=== PATIENT | female | born 1955 | race Caucasian/White ===

== ENCOUNTER 2019-06-21 06:16 | Inpatient (IN) ==
--- NOTE | 2019-05-21 15:40 | PAT Medication Instructions ---
Medication Instructions Date of Service May 21, 2019 Home Medications albuterol sulfate 1 puff INHALATION Q6H PRN amlodipine 5 mg PO QAM atorvastatin 40 mg PO PM carvedilol 6.25 mg PO BID lisinopril-hydrochlorothiazide 1 tab PO QAM DO NOT take the morning of surgery lisinopril-hydrochlorothiazide 1 tab PO QAM Take morning of surgery With a small sip of water, OTHERWISE NOTHING TO EAT OR DRINK AFTER MIDNIGHT: albuterol sulfate 1 puff INHALATION Q6H PRN (use if needed; please bring with you to hospital day of surgery if possible) amlodipine 5 mg PO QAM carvedilol 6.25 mg PO BID Take evening before surgery albuterol sulfate 1 puff INHALATION Q6H PRN (if needed) atorvastatin 40 mg PO PM carvedilol 6.25 mg PO BID Other Notes If you have any questions please call us at [phone] or [phone] or [phone] or [phone]
--- NOTE | 2019-05-22 10:54 | Anesthesiology Consultation ---
Date of Service May 22, 2019 Assessment & Plan (1) Encounter for pre-operative examination: - No previous anesthesia records re: intubation. Chart Review Chart Review: Acceptable Risk for Surgery and Patient seen in Pre Admission Testing Consults Requested none Teaching & Discussion Pre-Anesthesia Teaching/Discussion Notes: Instructed NPO after midnight before surgery, except medications with 15 cc of water. Medication instructions provided according to the PAT guidelines. History Surgery Operation Date: 06/21/19 07:00 Proposed Procedures p Left Anterior Total Hip Arthroplasty - Enmanuel Walsh DO Height/Weight Height: 5 ft 6.5 in Weight: 98.5 kg Allergies Allergy/AdvReac Type Severity Reaction Status Date / Time No Known Allergies Allergy Unverified 05/17/19 10:59 Medications Home Medications Medication Instructions Recorded Confirmed Last Taken albuterol sulfate 1 puff INHALATION Q6H PRN 05/17/19 05/17/19 Unknown amlodipine 5 mg PO QAM 05/17/19 05/17/19 Unknown atorvastatin 40 mg PO PM 05/17/19 05/17/19 Unknown carvedilol 6.25 mg PO BID 05/17/19 05/17/19 Unknown lisinopril-hydrochlorothiazide 1 tab PO QAM 05/17/19 05/17/19 Unknown Past Medical History Medical History Asthma STABLE; RARELY USES PRN INH History of breast cancer S/P LEFT MASTECTOMY + RADIATION - 1994 History of ovarian cancer S/P NENITA BSO + CHEMO - 2015 Hyperlipidemia Hypertension Limb alert care status LUE Exercise / Class Metabolic Activity II 4-5 Yardwork/Stairs/Walk up hill (Able to climb FOS. Denies CP or SOB. ) Past Surgical History Surgical History History of breast biopsy History of colonoscopy History of left mastectomy History of right hip replacement History of total abdominal hysterectomy and bilateral salpingo-oophorectomy History of vascular access device REMOVED Status post transverse rectus abdominis muscle (TRAM) flap breast reconstruction Past Anesthesia History No Hx of Anesthesia Complications and No Family Hx of Anesthesia Complications History of PONV No Hx of PONV and No Hx of Motion Sickness Social History Smoking Status: Current every day smoker tobacco type: cigarettes Smoking cigarettes per day: 3-4 PER DAY (Advised) Do You Dip or Chew Tobacco: No Hx Alcohol Use: Yes alcohol intake frequency: holidays/special occasions only Hx Substance Use: No substance use type: does not use Review of Systems Patient denies chest pain, shortness of breath, dyspnea on exertion, reflux, cough, wheezing, palpitations. +Joint Pain (Hip) Physical Exam Vital Signs BP: 136/81 P: 64 R: 14 T: 98.3 SPO2: 98% on RA Constitutional + obese ENMT Mouth: + poor dentition Thyromental Distance: < 3.5 Finger Breadths (2.5) Mallampati Class: II Neck normal visual inspection, trachea midline and + thick neck; neck extension not limited Respiratory normal respiratory effort Auscultation: lungs clear to auscultation bilaterally Cardiovascular Rate/Rhythm: regular rate and regular rhythm Heart Sounds: no murmur Vessels: no carotid bruit Neurologic moves all extremities Psychiatric Orientation: alert and oriented x 3 Testing Laboratory Results PT 10.4 Seconds (9.0-12.0) 05/22/19 11:07 INR 1.0 (0.9-1.1) 05/22/19 11:07 APTT 26.7 Seconds (21.0-31.0) 05/22/19 11:07 Urine Color Yellow 05/22/19 Unknown Urine Appearance Clear (Clear) 05/22/19 Unknown Urine pH 5.5 (4.5-7.5) 05/22/19 Unknown Ur Specific [place] 1.018 (1.000-1.030) 05/22/19 Unknown Urine Protein 2+ (Negative) H 05/22/19 Unknown Urine Glucose (UA) Negative (Negative) 05/22/19 Unknown Urine Ketones Negative (Negative) 05/22/19 Unknown Urine Nitrite Positive (Negative) A 05/22/19 Unknown Ur Leukocyte Esterase 2+ (Negative) H 05/22/19 Unknown Urine WBC (Auto) >30 /hpf (0-5) H 05/22/19 Unknown Urine RBC (Auto) 0-4 /hpf (0-4) 05/22/19 Unknown U Hyaline Cast (Auto) 1-5 /lpf (0-5) 05/22/19 Unknown U Epithel Cells (Auto) 10-20 /lpf (0-5) H 05/22/19 Unknown Urine Bacteria (Auto) 4+ (Negative) H 05/22/19 Unknown Blood Type O Positive 05/22/19 11:07 Antibody Screen NEGATIVE 05/22/19 11:07 Surgeon's office was notified of probable UTI. [facility] 05/10/19 WBC: 6.62 H/H: 12.1/37.2 PLATELETS: 228 SODIUM: 143 POTASSIUM: 5.2 H CHLORIDE: 107 CO2: 26 BUN: 24 H CREATININE: 1.6 H GLUCOSE: 117 Electrocardiogram Date: 05/22/19 Findings: + NSR @ (66) and + no change from (06/09/15) Chest X-Ray Date: 05/22/19 Findings: + NAD FINDINGS: No pneumothorax. No pleural effusions. Left breast deformity consist ent with postoperative changes. This is unchanged. There are surgical clips within the left axilla. The lungs are clear. The heart is top normal in size. This remains unchanged. IMPRESSION: No significant change compared to the prior study. No acute process.
--- NOTE | 2019-05-22 12:04 | XRay Report ---
XR chest Pre-admission PA/Lat HISTORY: Preop. COMPARISON: Chest 06/01/2015. FINDINGS: No pneumothorax. No pleural effusions. Left breast deformity consistent with postoperative changes. This is unchanged. There are surgical clips within the left axilla. The lungs are clear. The heart is top normal in size. This remains unchanged. IMPRESSION: No significant change compared to the prior study. No acute process. Electronically signed by: Sonu Major M.D. 05/22/2019 12:03 PM
[2019-05-22 12:14] LABS: Appearance Urine Clear (Clear); Bacteria Urine Automated 4+ (Negative); Bilirubin Urine Negative (Negative); Blood Urine Negative (Negative); Color Urine Yellow; Glucose Urine UA Negative (Negative); Ketones Urine Negative (Negative); Leukocyte Esterase Urine 2+ (Negative); Nitrite Urine Positive (Negative); Protein Urine 2+ (Negative); RBC Urine Automated 0-4 /hpf (0-4); Specific Gravity Urine 1.018 (1.000-1.030); Urobilinogen Urine Negative (Negative); WBC Urine Automated >30 /hpf (0-5); pH Urine 5.5 (4.5-7.5)
[2019-05-22 12:22] LABS: Partial Thromboplastin Time 26.7 Seconds (21.0-31.0); Prothrombin Time 10.4 Seconds (9.0-12.0)
[~2019-06-21 06:16] MED LIST: ACETAMINOPHEN 500 MG TAB PO SCH; CEFAZOLIN 2000MG 2,000 MG/15 ML SYR IV SCH; FAMOTIDINE 20 MG TAB PO SCH; GABAPENTIN 300 MG CAP PO SCH; LR 15ML/HR IV SCH; LR 60ML/HR IV SCH; ROPIVACAINE 0.5% HCL/PF 150 MG, BUPIVACAINE 0.5% MPF 30 ML, EPINEPHrine 30MG/30ML (OR U... INSTIL SCH; TRANEXAMIC ACID 1,000 MG **IV Pre-op IV SCH
[2019-06-21] MEDS ORDERED: TRANEXAMIC ACID 1,000 MG **IV Intra-op IV SCH (06:30)
--- NOTE | 2019-06-21 06:44 | History & Physical Bridge Note ---
Date of Service June 21, 2019 History & Physical Bridge Note I have examined the patient, reviewed the History & Physical and in the interval since the performance of the History & Physical I have noted the following changes of clinical significance: no changes noted
--- NOTE | 2019-06-21 06:47 | History & Physical Report ---
Date of Service June 21, 2019 Assessment & Plan (1) Osteoarthritis of left hip: We will proceed with a left anterior total hip arthroplasty. Postoperatively she will be kept overnight in the hospital for postop medical management. Will use aspirin for DVT prophylaxis. She plans to use [facility] upon discharge. Present on Admission?: Yes History of Present Illness Chief Complaint: Primary osteoarthritis of the left hip Primary Care Provider: Delano Arndt MD Aurea is a pleasant 64-year-old female who I did a right lateral total hip arthroplasty on in 2014. She did well with that. Unfortunately she is now having a lot of left hip pain. X-rays and clinical examination are diagnostic for primary osteoarthritis of the left hip. After failing conservative treatment, she has elected to proceed with a left total hip arthroplasty. Allergies Allergy/AdvReac Type Severity Reaction Status Date / Time No Known Allergies Allergy Unverified 05/17/19 10:59 Home Medications Home Medications Medication Instructions Recorded Confirmed Type albuterol sulfate 1 puff INHALATION Q6H PRN 05/17/19 05/17/19 History amlodipine 5 mg PO QAM 05/17/19 05/17/19 History atorvastatin 40 mg PO PM 05/17/19 05/17/19 History carvedilol 6.25 mg PO BID 05/17/19 05/17/19 History lisinopril-hydrochlorothiazide 1 tab PO QAM 05/17/19 05/17/19 History Past Med/Surg History Medical History Asthma STABLE; RARELY USES PRN INH History of breast cancer S/P LEFT MASTECTOMY + RADIATION - 1994 History of ovarian cancer S/P NENITA BSO + CHEMO - 2015 Hyperlipidemia Hypertension Limb alert care status LUE Surgical History History of breast biopsy History of colonoscopy History of left mastectomy History of right hip replacement History of total abdominal hysterectomy and bilateral salpingo-oophorectomy History of vascular access device REMOVED Status post transverse rectus abdominis muscle (TRAM) flap breast reconstruction Social History Preferred Language: Icelandic Communication Ability: Effective 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: No Beliefs That Will Affect Care: None Current Living Situation: Alone Other Information That Helps Us Care for You: No Feels Safe at Home: Yes Safety Concerns: Feels Safe At This Time Smoking Status: Current every day smoker Tobacco Type: cigarettes ; Cigarettes Per Day: 3-4 PER DAY (Advised) ; Do You Dip or Chew Tobacco: No ; Second Hand Exposure: Yes ; Tobacco Cessation Education Requested by Patient: No Hx Alcohol Use: Yes Hx Substance Use: No Review of Systems All systems reviewed & are unremarkable except as noted in HPI & below Physical Exam Constitutional: WD/WN, vitals as above Eyes: PERRL, conjunctivae normal, anicteric sclerae ENMT: external ear and nose normal, oropharynx normal Neck: trachea midline, no thyromegaly Respiratory: normal respiratory effort Cardiovascular: RRR, no murmur, no edema Gastrointestinal (Abdomen): normal bowel sounds, soft, nontender, no hepatosplenomegaly Musculoskeletal: Physical examination of the left hip reveals decreased range of motion with flexion, internal and external rotation. There is significant groin pain with forced internal rotation of the hip his leg lengths are essentially equal. Psychiatric: A+Ox3, euthymic affect Results & Data Diagnostic Findings Radiographs of the left hip and pelvis demonstrate advanced osteoarthritis with joint space narrowing osteophyte formation and [id number] articulation.
[2019-06-21] MEDS ORDERED: ORTHO JOINT ANESTHETIC ONE (07:01)
[2019-06-21] MEDS ORDERED: MIDAZOLAM HCL 1 MG/ML 2ML VIAL ONE ×2 (07:03→09:17)
[2019-06-21] MEDS ORDERED: fentaNYL citrate 100 MCG/2 ML VIAL ONE (07:03)
[2019-06-21] MEDS ORDERED: ONDANSETRON INJ 2 MG/ML 2 ML VIAL ONE (07:03)
[2019-06-21] MEDS ORDERED: LIDOCAINE HCL 2% 2 ML VIAL/AMP(20MG/ML) INFIL ONE (07:03)
[2019-06-21] MEDS ORDERED: PROPOFOL IV EMULSION 10 MG/ML 20 ML VIAL IV ONE (07:03)
[2019-06-21] MEDS ORDERED: BUPIVACAINE 0.5 % 5 MG/1 ML PF 10ML VIAL ONE (07:31)
[2019-06-21] MEDS ORDERED: LABETALOL HCL IV 5 MG/ML 20ML IV PRN (07:36)
[2019-06-21] MEDS ORDERED: HYDROmorphone INJ 1 MG/ML SYRINGE IV PRN (07:36)
[2019-06-21] MEDS ORDERED: KETOROLAC 30 MG/ML VIAL IV PRN (07:36)
[2019-06-21] MEDS ORDERED: ATROPINE SULFATE 0.1 MG/ML 10ML SYR IV PRN (07:36)
[2019-06-21] MEDS ORDERED: ONDANSETRON INJ 2 MG/ML 2 ML VIAL IV PRN ×2 (07:36→12:06)
[2019-06-21] MEDS ORDERED: PHENYLEPHRINE 100MCG/ML 5ML SYR ONE (09:52)
[2019-06-21] MEDS ORDERED: PHENYLEPHRINE HCL 10 MG/ML VIAL ONE (09:52)
[2019-06-21] MEDS ORDERED: ePHEDrine sulfate 50 MG/ML AMP ONE (09:52)
--- NOTE | 2019-06-21 10:09 | Operative Report ---
Post Operative Report Pre & Post Diagnosis Operation Date: 06/21/19 08:30 Pre-Op Diagnosis: Left Hip Osteoarthritis Post-Op Diagnosis: Left Hip Osteoarthritis Procedure Operation Date: 06/21/19 08:30 Actual Procedures p Left Anterior Total Hip Arthroplasty(Left) - Enmanuel Walsh DO Surgeon Enmanuel Walsh DO Waste Removalist Enmanuel Juarez PAC Estimated Blood Loss 250 Findings Consistent with Post-Op Diagnosis Specimens Left femoral head Complications none Disposition Disposition: Recovery Room Indications Aurea is a pleasant 64-year-old female who presented my office with chronic increasing left hip and groin pain. X-rays and clinical examination were diagnostic for primary osteoarthritis of the left hip. After failing conservative treatment, she elected to proceed with a left anterior total hip arthroplasty. Description of Procedure Implants used Biomet Taperloc total hip arthroplasty system with a size 8 standard offset Taperloc stem, a 48 mm G7 cup with a 25mm screw, an E1 polyethylene liner, a 32 mm ceramic head with a 0 neck. Patient arrived at the hospital for the above procedure. They were seen in the preoperative holding area and the operative extremity was identified and signed. They were given a spinal anesthetic. They were given a preoperative antibiotic and TXA. They were taken back To the operating room and laid on the table in the supine position. The leg was brought out through a Puristst leg positioner. The hip was then prepped and draped in sterile fashion. A timeout was done and the patient in upper extremities properly identified. An anterior approach was used. Dissection was taken down through the fascia and the tensor muscle belly was retracted laterally and the rectus was retracted medially. The circumflex vessels were identified and ligated. The capsule was then incised and tagged for later repair. The femoral neck was then cut and the femoral head was removed. The acetabulum was exposed. Time was spent doing a complete circumferential labral release. Sequential reaming of the acetabulum up to a size 47 reamer was done. Final reamings were done under fluoroscopy to ensure appropriate version. A Biomet 48 mm G7 cup was then impacted into place. A single 25 mm screw was placed. The E1 polyethylene liner was then snapped into place. Surrounding soft tissues were then injected with 100 cc of an orthopedic pain control cocktail. The proximal femur was then exposed. Sequential broaching up to a size 8 broach was done. Off that broach a size 32 head with a 0 neck was trialed. The hip was reduced and fluoroscopic images showed anatomic alignment of the implants in acceptable length. The broach was removed. The final size 8 standard offset Taperloc stem was then impacted into place. A ceramic 32 mm head with a 0 neck was then impacted into place in the hip was reduced. Final fluoroscopic images showed anatomic reduction of the hip. The capsule was then closed with #1 Vicryl suture. A dilute betadyne lavage was then done for 3 minutes. The joint was then irrigated with normal saline solution. The fascia was closed with #1 PDS suture. Skin was closed with 2-0 Vicryl, armin, and a Nicole VAC dressing. The patient was then transferred to a hospital bed and taken to the post anesthesia care unit in stable condition. They tolerated the procedure well. I attest to the content of the Intraoperative Record and any orders documented therein. Any exceptions are noted below.
--- NOTE | 2019-06-21 10:39 | Fluoroscopy Report ---
FL hip LT 1V CLINICAL HISTORY: LEFT ANTERIOR HIP COMPARISON STUDY: Left hip 02/04/2019. FLUOROSCOPY TIME: 24 seconds. FINDINGS: 8 fluoroscopic spot images demonstrate a left total hip arthroplasty. The hardware appears intact. No fracture or dislocation. IMPRESSION: Fluoroscopy provided for left total hip arthroplasty. Electronically signed by: Sonu Major M.D. 06/21/2019 10:38 AM
--- NOTE | 2019-06-21 11:13 | XRay Report ---
XR hip 1V LT w pelvis HISTORY: 64 years-old Female IN PACU - A/P PELVIS and LATERAL HIP left hip total joint arthroplasty COMPARISON: Fluoroscopic images of the left hip of same day TECHNIQUE: AP view of the pelvis with crosstable lateral view of the left hip FINDINGS: Left hip total joint arthroplasty demonstrates satisfactory alignment without acute fracture or retai gwen foreign body. Expected postsurgical soft tissue swelling and deep tissue air about the left hip w ith surgical drainage catheter and lateral skin armin. Right hip total joint arthroplasties also no tori with satisfactory alignment. Heterotopic ossifications superior to the right greater trochanter. The imaged pelvis appears intact. IMPRESSION: Satisfactory alignment of the left hip total joint arthroplasty. The above report was generated using voice recognition software. It may contain grammatical, syntax o r spelling errors. Electronically signed by: Tien Barrera M.D. 06/21/2019 11:12 AM
--- NOTE | 2019-06-21 11:27 | Anesthesiology Progress Note ---
Date of Service June 21, 2019 Anesthesia Post Procedure Vital Signs Vital Signs: Temp Pulse Resp BP Pulse Ox 06/21/19 11:20 36.8 C 58 L 17 134/83 94 06/21/19 11:10 36.7 C 59 L 15 135/86 94 06/21/19 11:00 36.7 C 59 L 14 139/86 96 06/21/19 10:50 36.7 C 56 L 9 L 116/79 98 06/21/19 10:41 36.7 C 61 11 L 117/77 98 06/21/19 06:54 36.5 C 72 16 153/83 H 95 Transfer of Care Handoff Completed per policy Notes Mental Status: alert / awake / arousable Patient Amnestic to Procedure: Yes Nausea / Vomiting: adequately controlled Pain: adequately controlled Airway Patency, RR, SpO2: stable & adequate BP & HR: stable & adequate Hydration State: stable & adequate Neuraxial Anesthesia: was administered and sensory block is resolving Anesthetic Complications: no major complications apparent
[2019-06-21] MEDS ORDERED: BISACODYL 10 MG SUPP PR PRN (12:06)
[2019-06-21] MEDS ORDERED: OXYCODONE HCL IR 5 MG TAB (IMMEDIATE RELEASE) PO PRN (12:06)
[2019-06-21] MEDS ORDERED: ALBUTEROL HFA 8 GM INHALER INH PRN (12:06)
[2019-06-21] MEDS ORDERED: METOCLOPRAMIDE HCL INJ 5 MG/ML 2 ML VIAL IV PRN (12:06)
[2019-06-21] MEDS ORDERED: MAGNESIUM HYDROXIDE SUSP 30 ML UDC PO PRN (12:06)
[2019-06-21] MEDS ORDERED: NALOXONE HCL 0.4 MG/1 ML VIAL/CARP IV PRN (12:06)
[2019-06-21] MEDS ORDERED: HYDROmorphone INJ 0.5 MG/0.5 ML SYR IV PRN (12:06)
[2019-06-21] MEDS: SODIUM CHLORIDE 0.9% 1000ML 1,000 ML IV SCH ×2 (12:48→22:47)
[2019-06-21] MEDS: KETOROLAC 30 MG/ML VIAL IV SCH ×2 (12:48→17:36)
[2019-06-21] MEDS: ACETAMINOPHEN 500 MG TAB PO SCH ×2 (13:45→21:54)
[2019-06-21] MEDS: CEFAZOLIN 2000MG 2,000 MG/15 ML SYR IV SCH (15:52)
[2019-06-21] MEDS: DOCUSATE SODIUM 100 MG CAP PO SCH (20:14)
[2019-06-21] MEDS: CARVEDILOL 6.25 MG TAB PO SCH (20:14)
[2019-06-21] MEDS: ASPIRIN 81 MG ECTAB PO SCH (20:14)
[2019-06-21] MEDS ORDERED: ATORVASTATIN 40 MG TAB PO SCH (21:00)
[2019-06-21] MEDS ORDERED: SENNA 8.6 MG TAB PO SCH (21:00)
[2019-06-22] MEDS: CEFAZOLIN 2000MG 2,000 MG/15 ML SYR IV SCH (00:20)
[2019-06-22] MEDS: KETOROLAC 30 MG/ML VIAL IV SCH ×3 (00:20→12:43)
[2019-06-22] MEDS: ACETAMINOPHEN 500 MG TAB PO SCH (05:26)
--- NOTE | 2019-06-22 07:03 | Orthopedic Progress Note ---
Date of Service June 22, 2019 Assessment & Plan (1) Osteoarthritis of left hip: Overall she is doing very well. She is not having much pain in the left hip. She will be seen by physical therapy this morning for ambulation and range of motion exercises. She can be discharged home later today. She will use [facility]. She is on aspirin for DVT prophylaxis. She will follow-up with orthopedics in 2 weeks. Present on Admission?: Yes Misa Villar was seen and examined at bedside this morning. Overall she is doing very well. She is not having any pain in the left hip. She is been up and ambulating around the room. She has no complaints. Physical Exam Musculoskeletal: On physical examination of the left hip, the Nicole VAC dressing is to suction. Her leg lengths are equal. She is active dorsiflexion and plantarflexion of her left ankle. Sensations intact throughout. Results & Data Vital Signs (Past 12 Hours) Vital Signs Temp Pulse Pulse Resp BP BP Pulse Ox 06/22/19 03:47 36.4 C L 65 16 136/80 97 06/21/19 23:34 36.4 C L 66 16 120/72 96 06/21/19 20:10 67 120/76 06/21/19 19:20 36.3 C L 73 16 141/85 H 97 Diagnostic Findings Postoperative x-rays of the left hip show the prosthesis to be in anatomic alignment without any evidence of fracture, dislocation, or loosening. PG Care Time/CCT Total # of Minutes Spent Total Time Spent with Patient: Total time spent is greater than 50% in coordination of care (as documented) at patient's floor/unit and/or counseling patient:
--- NOTE | 2019-06-22 07:04 | Discharge Summary ---
Date of Service June 22, 2019 Admission HPI Per Admitting Provider Aurea is a pleasant 64-year-old female who I did a right lateral total hip arthroplasty on in 2014. She did well with that. Unfortunately she is now having a lot of left hip pain. X-rays and clinical examination are diagnostic for primary osteoarthritis of the left hip. After failing conservative treatment, she has elected to proceed with a left total hip arthroplasty. Principal Diagnosis Primary osteoarthritis of the left hip Discharge Data Allergies Allergy/AdvReac Type Severity Reaction Status Date / Time No Known Allergies Allergy Verified 06/21/19 06:49 Consultations 06/22/19 08:00 Consult Case Management - Discharge Planning Routine Procedures Performed Operation Date: 06/21/19 08:30 Actual Procedures p Left Anterior Total Hip Arthroplasty(Left) - Enmanuel Walsh DO Ordered Studies 06/21/19 08:30 FL fluoroscopy <1hr Routine FL hip LT 1V Routine Hospital Course (1) Osteoarthritis of left hip: On June 21, 2019 Aurea arrived at [facility] and underwent a left anterior total hip arthroplasty without complication. She had a spinal anesthetic. Postoperatively she was started on aspirin for DVT prophylaxis and discharged to general orthopedic floors. Her hospital course was uneventful. On postop day #1 her H&H was stable and her pain was well controlled. She was able to ambulate well with physical therapy. She was then discharged home with [facility]. She will follow-up with orthopedics in 2 weeks. Total Time Total Time Spent Total Time Spent (In Minutes): 20 Discharge Plan Discharge Items Patient Disposition: Home - Home Health Services Reason For Visit: LEFT HIP DEGENERATIVE JOINT DISEASE Discharge Diagnosis: Left total hip arthroplasty Discharge Goals: Decrease discomfort and Improve function Activity: Per 'Additional Instructions' section Non-emergency contact: Surgeon Call non-emergency contact if: your wound has increased redness and your wound has increased drainage Follow-up/Referrals: Delano Arndt MD [Primary Care Provider] - Diet: Regular Addtl Provider Instructions: Activity and Therapy Recommendations: * If you are using [facility] then therapy will be provided at your home until they feel you have accomplished all of your goals. * If you are using [facility] then Physical Therapy will be provided until they feel you are ready to start Outpatient Physical Therapy. * If you are not using home therapy then Outpatient Physical Therapy should start about 3-5 days from your day of surgery. Therapy will last about 6-10 weeks * You were shown a series of exercises in the hospital. Do these exercises three times each day including the exercises you were shown in physical therapy. * Get up and walk several times each day.~ For the first four weeks, try not to stand or walk for more than one hour at a time. If you do stand or walk for more than one hour, you will not hurt anything, but your leg will likely swell.~~ * As you feel comfortable, you may change from the walker or crutches to a cane and~then to independent walking. Medications: * Narcotic You will likely be sent home from the hospital with a prescription for the narcotic pain medication that worked best throughout your stay. * Aspirin Most patients will be required to take Aspirin 81mg twice a day for 6 weeks after surgery. This is obtained [id number] and a prescription is not necessary. * Other medications may be prescribed for specific circumstances. If you have any questions, please call the office at . * Resume previous home medications unless otherwise instructed TEDs/Elastic Stockings: The white elastic stockings help limit swelling and prevent blood clots from forming in your legs. The more you wear them, the more they work. Wear them for six weeks. Dressing Care: You will likely have a purple VAC dressing after surgery. This dressing will keep the incision dry and promote early healing. After about 7 days the batteries will wear out and the VAC will lose suction. Simply remove the dressing at that time and throw everything away, including the small suction machine. Then, you may leave the armin open to air or cover them with a dry dressing so they do not rub on your pants. The armin will be removed at your 2 week follow-up appointment. Showering: You may shower immediately with the purple VAC dressing. Let the shower spray hit your opposite side and slowly pat the plastic dry. Do not soak the dressing. After the dressing is removed you may shower normally with the armin exposed. Let soapy water run over the armin and pat them dry. Things To Watch For: * Drainage from the incision site that occurs more than one week after your surgery. * Increased redness at the incision site. * Fever above 102 degrees Fahrenheit. * Unusual chest pain or shortness of breath. * Call [facility] at with any of the above problems Follow-Up Visit: Follow-up with Dr. Walsh 2-3 weeks after your day of surgery. An appointment was probably scheduled when you signed-up for surgery in the office. If you have any questions call Office Instructions: More detailed instructions as well as Frequently Asked Questions were provided in a folder by our office when you signed-up for surgery. Please review these instructions when you get home. If you have any further questions or concerns, please feel free to call the office at [phone] Prescriptions: New oxycodone 5 mg Tablet 5 mg PO Q4H PRN (Reason: pain) Qty: 20 RF: 0 aspirin [Ecotrin Low Strength] 81 mg Tablet,Delayed Release (Dr/Ec) 81 mg PO BID Qty: 84 RF: 0 Continued atorvastatin 40 mg Tablet 40 mg PO PM RF: 0 carvedilol 6.25 mg Tablet 6.25 mg PO BID RF: 0 amlodipine 5 mg Tablet 5 mg PO QAM RF: 0 lisinopril-hydrochlorothiazide 20-25 mg Tablet 1 tab PO QAM RF: 0 albuterol sulfate 90 mcg/actuation Hfa Aerosol Inhaler 1 puff INHALATION Q6H PRN (Reason: SOB) RF: 0 Stand-Alone Forms: [facility] Discharge Orders: Discharge Order (Routine); Ordered 06/22/19 Ordered By: Enmanuel Walsh Admission Data Admit Date/Time: 06/21/19 10:46 Attending Provider: Enmanuel Walsh Admit Provider: Enmanuel Walsh Primary Care Provider: Delano Arndt Service: Surgical Services
[2019-06-22 07:06] LABS: Basophils # (auto) 0.03 K/uL (0-0.2); Basophils % (auto) 0.3 %; Eosinophils # (auto) 0.18 K/uL (0-0.5); Eosinophils % (auto) 1.7 %; Hematocrit (blood only) 27.1 % (37-47); Hemoglobin 9.3 g/dL (12.0-16.0); Immature Granulocytes # (auto) 0.02 K/uL (0.00-0.02); Immature Granulocytes % (auto) 0.2 %; Lymphocytes # (auto) 0.69 K/uL (1.2-3.4); Lymphocytes % (auto) 6.6 %; Mean Corpuscular Hgb Conc 34.3 g/dL (32-36); Mean Corpuscular Volume 84.2 fL (80-100); Monocytes # (auto) 0.71 K/uL (0.11-0.59); Monocytes % (auto) 6.8 %; Neutrophils # (auto) 8.79 K/uL (1.4-6.5); Neutrophils % (auto) 84.4 %; Platelet Count 134 K/uL (130-400); RDW Coefficient of Variation 13.2 % (11.5-14.5); RDW Standard Deviation 40.4 fL (36.4-46.3); Red Blood Count 3.22 M/uL (4.2-5.4); White Blood Count 10.42 K/uL (4.8-10.8)
[2019-06-22 07:37] LABS: BUN Creatinine Ratio 16.1 (10-20); Calcium 8.4 mg/dl (8.5-10.1); Creatinine Clr Calc Pharmacy 35.1 ml/min; Est GFR (African American) 30.8; Est GFR (Non-African American) 26.6; Potassium 4.9 mmol/L (3.5-5.1)
[2019-06-22] MEDS ORDERED: MULTIVITAMIN TAB PO SCH (09:00)
[2019-06-22] MEDS ORDERED: AMLODIPINE BESYLATE 5 MG TAB PO SCH (09:00)
[2019-06-22] MEDS ORDERED: LISINOPRIL/HCTZ 20/25MG 1 TAB PO SCH (09:00)
[2019-06-22] MEDS: DOCUSATE SODIUM 100 MG CAP PO SCH (09:56)
[2019-06-22] MEDS: CARVEDILOL 6.25 MG TAB PO SCH (09:57)
[2019-06-22] MEDS: ASPIRIN 81 MG ECTAB PO SCH (09:57)
== END 2019-06-22 13:41 | disposition home health service (06) | DRG 470 ==
LOC: ASU 06:16 → 3E 10:46

== ENCOUNTER 2022-08-14 09:28 | Observation (INO) ==
[2022-08-14] MEDS ORDERED: ALBUT/IPRATROP 3MG/0.5MG NEB 3 ML VIAL NEB ONE (09:44)
[2022-08-14] MEDS ORDERED: methylPREDNISolone 125 MG/2 ML VIAL IV STA (09:44)
--- NOTE | 2022-08-14 10:09 | Emergency Department Note ---
Impression & Plan Acute exacerbation of chronic obstructive airways disease, Acute bronchitis, Hypoxia ED Provider Note NAME: NILSON ENAMORADO AGE: 67 SEX: F : 1955 ARRIVES VIA: Walk-In INFORMANT: Patient, ED PROVIDER(S): Waqar Eagle DO CHIEF COMPLAINT: Difficulty breathing HPI: The patient is a 67-year-old female who presented to the emergency department for difficulty breathing. The patient states she has had symptoms for the last 2 days. She states that she gets a pulmonary infection similar to this at least once a year. She states she has not had 1 this bad about 5 to 6 years. She is had a cough and low-grade fever. She denies having any nausea or vomiting. She denies having any hemoptysis. She denies have any lower extremity swelling or pain. She has had no chest pain. The patient was seen in [email or web address] and treated with a nebulizer treatment. Her oxygen saturation was low and she was referred to the emergency department for further evaluation. Symptoms worsen with any exertion. She denies having any orthopnea. ROS: See above HPI for pertinent positives & negatives. A total of 10 systems reviewed and were otherwise negative. PAST MEDICAL HISTORY: See Below PAST SURGICAL HISTORY: See Below FAMILY HISTORY: See Below SOCIAL HISTORY: See Below HOME MEDICATIONS: See Below ALLERGIES: See Below VITALS: See Below PHYSICAL EXAMINATION: GENERAL: The patient is awake and alert. She is mildly anxious appearing. EYES: The conjunctivae are clear. The pupils are round and reactive. EARS, NOSE, MOUTH AND THROAT: The nose is without any evidence of any deformity. NECK: The neck is nontender and supple. RESPIRATORY: Diminished breath sounds are noted in the right lung field. There is faint expiratory wheezing noted on the left lung field. Poor air movement was noted. CARDIOVASCULAR: Regular rate and rhythm noted there no murmurs rubs or gallops normal S1 normal S2. GASTROINTESTINAL: The abdomen is soft. Abdomen is nontender. MUSCULOSKELETAL/EXTREMITIES: There is no evidence of gross deformity full range of motion is noted in the hips and shoulders. SKIN: There is no obvious evidence of any rash. There are no petechiae, pallor or cyanosis noted. NEUROLOGIC: Patient is awake alert and oriented x3 MEDICAL DECISION MAKING: Is a 67-year-old female who presented to the emergency department for an evaluation of difficulty breathing. The patient presented to an outpatient urgent care initially. She was found to have significant hypoxia. She was treated with a bronchodilator nebulizer prior to arrival and also given an hour- long nebulizer and IV steroids in the emergency department. She was reevaluated multiple times. She was significantly improved on supple oxygen and on bronchodilator therapy but with any exertion she would become very short of breath and off oxygen she would have hypoxia. I discussed the patient's laboratory and radiographic studies with her. I also discussed this case with the on-call [facility] Hospitalist. They have agreed to evaluate the patient in the emergency department for further management and disposition. Triage Nursing notes reviewed. Prior medical records reviewed Vital Signs: reviewed and remarkable for elevated blood pressure and hypoxia Differential diagnosis: Reactive airway disease, pneumonia, pneumothorax, COPD, CHF, infections, cardiac ischemia, pulmonary embolism, musculoskeletal, gastrointestinal, as well as other pathologies. ER treatment provided: See below Diagnostics interpreted by me: ECG: EKG was obtained in the emergency department. My interpretation is normal sinus rhythm at 87 bpm. There is no ectopy. There is no acute ST segment abnormalities noted. This was compared to a tracing from May 22, 2019. No c hanges were noted. Cardiac Monitoring: An order was placed for continuous cardiac monitoring. The monitor shows a rate of 90 bpm with sinus rhythm. Laboratory studies: As stated above and show below. Imaging studies: See below Consultation(s): I discussed this case with Dr. Quiñnoez who is on-call for the [facility] Hospitalist group. ED COURSE: Procedures: none Critical Care: I have personally spent greater than 35 minutes of critical care time in the direct management of this patient. This includes bedside care, interpretation of diagnostic studies, and testing, discussion with consultants, patient, and family members, and other required patient management activities. This 35 minutes is in excess of all separately billable procedures. Past Med/Surg History Medical History (Updated 08/14/22 @ 11:59 by Waqar Eagle DO) Asthma STABLE; RARELY USES PRN INH History of breast cancer S/P LEFT MASTECTOMY + RADIATION - 1994 History of ovarian cancer S/P NENITA BSO + CHEMO - 2015 Hyperlipidemia Hypertension Limb alert care status LUE Surgical History History of breast biopsy History of colonoscopy History of left mastectomy History of right hip replacement History of total abdominal hysterectomy and bilateral salpingo-oophorectomy History of vascular access device REMOVED Status post transverse rectus abdominis muscle (TRAM) flap breast reconstruction Social History Smoking Status: Current some day smoker Cigarettes Per Day: 3-4 PER DAY (Advised); Second Hand Exposure: Yes; Hx Alcohol Use: Yes Hx Substance Use: No Preferred Language: Cambodian Communication Ability: Effective Wage Analyst Required: No Beliefs That Will Affect Care: None marital status: Single Current Living Situation: Alone Feels Safe at Home: Yes Assistive Devices: Glasses and Walker Allergies Allergies Allergy/AdvReac Type Severity Reaction Status Date / Time No Known Allergies Allergy Verified 06/21/19 06:49 Home Meds Home Medications Medication Instructions Recorded Confirmed albuterol sulfate 90 mcg/actuation 1 puff inhalation Q6H PRN SOB 05/17/19 05/17/19 aerosol inhaler amlodipine 5 mg tablet 5 mg PO QAM 05/17/19 06/21/19 atorvastatin 40 mg tablet 40 mg PO PM 05/17/19 06/21/19 carvedilol 6.25 mg tablet 6.25 mg PO BID 05/17/19 06/21/19 lisinopril 20 1 tab PO QAM 05/17/19 06/21/19 mg-hydrochlorothiazide 25 mg tablet Previous Rx's Medication Instructions Recorded aspirin 81 mg tablet,delayed 81 mg PO BID #84 tabs 06/22/19 release (Ecotrin Low Strength) oxycodone 5 mg tablet 5 mg PO Q4H PRN pain #20 tabs 06/22/19 Results & Data (ED) Vital Signs Vital Signs - 24 hr 08/14/22 09:33 08/14/22 10:18 08/14/22 10:18 Temperature 37.1 C Temperature Source Temporal Artery Scan Pulse Rate 95 H Pulse Rate [Finger] 88 Pulse Rhythm Pulse Rhythm [Finger] Regular Pulse Strength [Finger] Normal Respiratory Rate 18 22 Respiratory Effort / Characteristics Non-Labored Non-Labored Respiratory Depth Normal Normal Respiratory Pattern Regular Regular Blood Pressure 183/103 H Blood Pressure [Left Arm] 164/99 H Blood Pressure Mean 129 Blood Pressure Mean [Left Arm] 120 Blood Pressure Position [Left Arm] Lying Pulse Oximetry 87 L 77 L 93 Oxygen Delivery Method Room Air Room Air Nasal Cannula Oxygen Flow Rate 3 Sepsis Recent Fever Within 48 Hours No Sepsis New/Unexplained Change in Mental Status No Sepsis Action Taken by Nursing No Action Required Pulse Oximetry Post Tiitration 90 08/14/22 10:18 Temperature Temperature Source Pulse Rate 90 Pulse Rate [Finger] Pulse Rhythm Regular Pulse Rhythm [Finger] Pulse Strength [Finger] Respiratory Rate Respiratory Effort / Characteristics Respiratory Depth Respiratory Pattern Blood Pressure Blood Pressure [Left Arm] Blood Pressure Mean Blood Pressure Mean [Left Arm] Blood Pressure Position [Left Arm] Pulse Oximetry 95 Oxygen Delivery Method Nasal Cannula Oxygen Flow Rate 3 Sepsis Recent Fever Within 48 Hours Sepsis New/Unexplained Change in Mental Status Sepsis Action Taken by Nursing Pulse Oximetry Post Tiitration Home Medications Current Medication List: was personally reviewed by me Laboratory Data Attestation: I reviewed the patient's lab results. Result diagrams: 08/14/22 10:15 08/14/22 10:15 Lab Results 08/14/22 08/14/22 08/14/22 Range/Units 10:15 10:15 10:15 WBC 6.53 (4.8-10.8) K/ul RBC 4.43 (3.93-5.22) M/uL Hgb 13.0 (12.0-16.0) g/dl Hct 39.7 (34.1-44.9) % MCV 89.6 (80.0-100.0) fL MCH 29.3 (25.0-34.0) pg MCHC 32.7 (32.0-36.0) g/dL RDW Std Deviation 43.1 (36.4-46.3) fL RDW Coeff of Santana 13.2 (11.5-14.5) % Plt Count 204 (130-400) K/uL MPV 9.5 (9.4-12.3) fL Immature Gran % (Auto) 0.5 % Neut % (Auto) 76.1 % Lymph % (Auto) 10.4 % Pettis % (Auto) 11.3 % Eos % (Auto) 0.9 % Baso % (Auto) 0.8 % Neut # (Auto) 4.97 (1.4-6.5) K/uL Lymph # (Auto) 0.68 L (1.2-3.4) K/uL Pettis # (Auto) 0.74 (0.24-0.82) K/uL Eos # (Auto) 0.06 (0-0.50) K/uL Baso # (Auto) 0.05 (0-0.2) K/uL Immature Gran # (Auto) 0.03 H (0.00-0.02) K/uL PT 11.1 (9.0-12.0) Seconds INR 1.0 (0.9-1.1) APTT 26.3 (21.0-31.0) Seconds PTT Ratio 1.0 VBG pH (7.36-7.41) VBG pCO2 (38-50) mmHg VBG pO2 mmHg VBG HCO3 mmol/L VBG O2 Saturation % VBG Base Excess mEq/L Sodium 138 (136-145) mmol/L Potassium 5.0 (3.5-5.1) mmol/L Chloride 105 (98-107) mmol/L Carbon Dioxide 25 (21-32) mmol/L Anion Gap 8 (3-11) BUN 17 (6-23) mg/dl Creatinine 1.36 H (0.6-1.2) mg/dl Est Cr Clr Drug Dosing 46.7 ml/min Est GFR ( Amer) 47.2 ml/min Est GFR (Non-Af Amer) 40.7 ml/min BUN/Creatinine Ratio 12.5 (10-20) Glucose 102 H (70-99(Fasting)) mg/dl Calcium 10.0 (8.5-10.1) mg/dl Magnesium 1.5 L (1.7-2.4) mg/dl Total Bilirubin 0.8 (0.2-1.0) mg/dl AST 31 (13-39) U/L ALT 28 (7-52) U/L Alkaline Phosphatase 105 H (34-104) U/L Troponin I High Sens 6.6 (0-14) pg/ml Total Protein 7.6 (6.0-8.3) gm/dl Albumin 4.4 (3.4-5.0) gm/dl Globulin 3.2 (2.5-4.0) gm/dl Albumin/Globulin Ratio 1.4 (0.9-2) Urine Color Urine Appearance (Clear) Urine pH (4.5-7.5) Ur Specific [place] (1.000-1.030) Urine Protein (Negative) Urine Glucose (UA) (Negative) Urine Ketones (Negative) Urine Blood (Negative) Urine Nitrite (Negative) Urine Bilirubin (Negative) Urine Urobilinogen (Negative) Ur Leukocyte Esterase (Negative) Urine WBC (Auto) (0-5) /hpf Urine RBC (Auto) (0-4) /hpf U Hyaline Cast (Auto) (0-5) /lpf U Epithel Cells (Auto) (0-5) /lpf Urine Bacteria (Auto) (Negative) SARS-CoV-2 (PCR) (Negative) Influenza Type A (PCR) (Neg) Influenza Type B (PCR) (Neg) RSV (RT-PCR) (Neg) 08/14/22 08/14/22 08/14/22 Range/Units 10:15 10:15 11:24 WBC (4.8-10.8) K/ul RBC (3.93-5.22) M/uL Hgb (12.0-16.0) g/dl Hct (34.1-44.9) % MCV (80.0-100.0) fL MCH (25.0-34.0) pg MCHC (32.0-36.0) g/dL RDW Std Deviation (36.4-46.3) fL RDW Coeff of Santana (11.5-14.5) % Plt Count (130-400) K/uL MPV (9.4-12.3) fL Immature Gran % (Auto) % Neut % (Auto) % Lymph % (Auto) % Pettis % (Auto) % Eos % (Auto) % Baso % (Auto) % Neut # (Auto) (1.4-6.5) K/uL Lymph # (Auto) (1.2-3.4) K/uL Pettis # (Auto) (0.24-0.82) K/uL Eos # (Auto) (0-0.50) K/uL Baso # (Auto) (0-0.2) K/uL Immature Gran # (Auto) (0.00-0.02) K/uL PT (9.0-12.0) Seconds INR (0.9-1.1) APTT (21.0-31.0) Seconds PTT Ratio VBG pH 7.41 (7.36-7.41) VBG pCO2 34 L (38-50) mmHg VBG pO2 51 mmHg VBG HCO3 22 mmol/L VBG O2 Saturation 85.2 % VBG Base Excess -2.4 mEq/L Sodium (136-145) mmol/L Potassium (3.5-5.1) mmol/L Chloride (98-107) mmol/L Carbon Dioxide (21-32) mmol/L Anion Gap (3-11) BUN (6-23) mg/dl Creatinine (0.6-1.2) mg/dl Est Cr Clr Drug Dosing ml/min Est GFR ( Amer) ml/min Est GFR (Non-Af Amer) ml/min BUN/Creatinine Ratio (10-20) Glucose (70-99(Fasting)) mg/dl Calcium (8.5-10.1) mg/dl Magnesium (1.7-2.4) mg/dl Total Bilirubin (0.2-1.0) mg/dl AST (13-39) U/L ALT (7-52) U/L Alkaline Phosphatase (34-104) U/L Troponin I High Sens (0-14) pg/ml Total Protein (6.0-8.3) gm/dl Albumin (3.4-5.0) gm/dl Globulin (2.5-4.0) gm/dl Albumin/Globulin Ratio (0.9-2) Urine Color Yellow Urine Appearance Clear (Clear) Urine pH 7.0 (4.5-7.5) Ur Specific [place] 1.014 (1.000-1.030) Urine Protein 3+ H (Negative) Urine Glucose (UA) Negative (Negative) Urine Ketones Negative (Negative) Urine Blood Trace H (Negative) Urine Nitrite Negative (Negative) Urine Bilirubin Negative (Negative) Urine Urobilinogen Negative (Negative) Ur Leukocyte Esterase Trace H (Negative) Urine WBC (Auto) 5-10 H (0-5) /hpf Urine RBC (Auto) 0-4 (0-4) /hpf U Hyaline Cast (Auto) 1-5 (0-5) /lpf U Epithel Cells (Auto) >30 H (0-5) /lpf Urine Bacteria (Auto) Negative (Negative) SARS-CoV-2 (PCR) NEGATIVE (Negative) Influenza Type A (PCR) Negative (Neg) Influenza Type B (PCR) Negative (Neg) RSV (RT-PCR) Positive A* (Neg) Administered Medications Magnesium Sulfate/Dextrose (Magnesium Sulfate / D5w) 1 gm in 100 mls @ 100 mls/hr IV Q1H WING Stop: 08/14/22 13:13 Last Admin: 08/14/22 11:19 Dose: 100 mls/hr Documented By: STEPHANIE Discontinued Medications Albuterol (Albut/Ipratrop 3mg/0.5mg Neb 3 Ml Vial) 12 ml NEB ONE ONE; Protocol Stop: 08/14/22 09:45 Last Admin: 08/14/22 10:10 Dose: 12 ml Documented By: STEPHANIE Methylprednisolone (Methylprednisolone 125 Mg/2 Ml Vial) 125 mg IV NOW STA Stop: 08/14/22 09:45 Last Admin: 08/14/22 10:10 Dose: 125 mg Documented By: STEPHANIE Imaging Data Radiologist's Impression: Chest X-Ray 08/14/22 09:41 XR chest 1V portable HISTORY: 67 years-old Female Dyspnea shortness of breath COMPARISON: Chest radiograph 05/22/2019 TECHNIQUE: AP view of the chest FINDINGS: Cardiac silhouette is enlarged. Atherosclerosis of the aorta. No pneumothorax, large pleural effusion or overt pulmonary edema. Mild subsegmental left basilar densities suggest atelectasis. Prominent epicardial fat pad. Degenerative changes of the shoulders and spine. Surgical clip of the left axilla. IMPRESSION: No acute process. ACT 112: Negative or not required by law. The above report was generated using voice recognition software. It may contain grammatical, syntax or spelling errors. Electronically signed by: Gurinder Barrera M.D. 08/14/2022 10:17 AM Discharge Plan Visit Data Chief Complaint: Shortness of Breath/Dyspnea Stated Complaint: SOB,FLU SYMPTOMS ED Provider: Waqar Eagle Discharge Problem: Acute exacerbation of chronic obstructive airways disease, Acute bronchitis, Hypoxia Patient Disposition: Being Evaluated by Hospitalist Forms Stand Alone Forms: My [employer] Prescriptions Prescriptions: No Action atorvastatin 40 mg Tablet 40 mg PO PM carvedilol 6.25 mg Tablet 6.25 mg PO BID amlodipine 5 mg Tablet 5 mg PO QAM lisinopril-hydrochlorothiazide 20-25 mg Tablet 1 tab PO QAM albuterol sulfate 90 mcg/actuation Hfa Aerosol Inhaler 1 puff INHALATION Q6H PRN (Reason: SOB) oxycodone 5 mg Tablet 5 mg PO Q4H PRN (Reason: pain) Qty: 20 0RF aspirin [Ecotrin Low Strength] 81 mg Tablet,Delayed Release (Dr/Ec) 81 mg PO BID Qty: 84 0RF Referrals Referrals: Delano Arndt MD [Primary Care Provider] -
--- NOTE | 2022-08-14 10:19 | XRay Report ---
XR chest 1V portable HISTORY: 67 years-old Female Dyspnea shortness of breath COMPARISON: Chest radiograph 05/22/2019 TECHNIQUE: AP view of the chest FINDINGS: Cardiac silhouette is enlarged. Atherosclerosis of the aorta. No pneumothorax, large pleural effusion or overt pulmonary edema. Mild subsegmental left basilar densities suggest atelectasis. Prominent ep icardial fat pad. Degenerative changes of the shoulders and spine. Surgical clip of the left axilla. IMPRESSION: No acute process. ACT 112: Negative or not required by law. The above report was generated using voice recognition software. It may contain grammatical, syntax o r spelling errors. Electronically signed by: Gurinder Barrera M.D. 08/14/2022 10:17 AM
[2022-08-14 10:38] LABS: Basophils # (auto) 0.05 K/uL (0-0.2); Basophils % (auto) 0.8 %; Eosinophils # (auto) 0.06 K/uL (0-0.50); Eosinophils % (auto) 0.9 %; Hematocrit (blood only) 39.7 % (34.1-44.9); Immature Granulocytes # (auto) 0.03 K/uL (0.00-0.02); Immature Granulocytes % (auto) 0.5 %; Lymphocytes # (auto) 0.68 K/uL (1.2-3.4); Lymphocytes % (auto) 10.4 %; Mean Corpuscular Hemoglobin 29.3 pg (25.0-34.0); Mean Corpuscular Hgb Conc 32.7 g/dL (32.0-36.0); Mean Corpuscular Volume 89.6 fL (80.0-100.0); Mean Platelet Volume 9.5 fL (9.4-12.3); Monocytes # (auto) 0.74 K/uL (0.24-0.82); Monocytes % (auto) 11.3 %; Neutrophils # (auto) 4.97 K/uL (1.4-6.5); Neutrophils % (auto) 76.1 %; Platelet Count 204 K/uL (130-400); RDW Coefficient of Variation 13.2 % (11.5-14.5); RDW Standard Deviation 43.1 fL (36.4-46.3); Red Blood Count 4.43 M/uL (3.93-5.22); White Blood Count 6.53 K/ul (4.8-10.8)
[2022-08-14 10:47] LABS: Appearance Urine Clear (Clear); Bacteria Urine Automated Negative (Negative); Bilirubin Urine Negative (Negative); Blood Urine Trace (Negative); Color Urine Yellow; Epithelial Cell Urine Auto >30 /lpf (0-5); Glucose Urine UA Negative (Negative); Ketones Urine Negative (Negative); Leukocyte Esterase Urine Trace (Negative); Nitrite Urine Negative (Negative); Protein Urine 3+ (Negative); RBC Urine Automated 0-4 /hpf (0-4); Specific Gravity Urine 1.014 (1.000-1.030); Urobilinogen Urine Negative (Negative)
[2022-08-14 10:53] LABS: Partial Thromboplastin Time 26.3 Seconds (21.0-31.0); Prothrombin Time 11.1 Seconds (9.0-12.0)
[2022-08-14 10:58] LABS: Albumin Globulin Ratio 1.4 (0.9-2); Albumin Level 4.4 gm/dl (3.4-5.0); BUN Creatinine Ratio 12.5 (10-20); Bilirubin,Total 0.8 mg/dl (0.2-1.0); Creatinine Clr Calc Pharmacy 46.7 ml/min; Est GFR (African American) 47.2 ml/min; Est GFR (Non-African American) 40.7 ml/min; Globulin 3.2 gm/dl (2.5-4.0); Magnesium 1.5 mg/dl (1.7-2.4); Total Protein 7.6 gm/dl (6.0-8.3)
[2022-08-14 11:04] LABS: Troponin I High Sensitivity 6.6 pg/ml (0-14)
[2022-08-14] MEDS: MAGNESIUM SULFATE / D5W 1 GM/100 ML BAG IV SCH ×2 (11:19→12:19)
[2022-08-14 11:22] LABS: Influenza A virus by PCR Negative (Neg); Influenza B virus by PCR Negative (Neg); SARS CoV2 RNA(COVID-19) InHosp NEGATIVE (Negative)
[2022-08-14 11:35] LABS: Base Excess VBG -2.4 mEq/L; HCO3 VBG 22 mmol/L; Oxygen Saturation VBG 85.2 %; PCO2 VBG 34 mmHg (38-50); PO2 VBG 51 mmHg; pH VBG 7.41 (7.36-7.41)
[2022-08-14 11:43] LABS: RSV by PCR Positive (Neg)
[2022-08-14] MEDS ORDERED: SODIUM CHLORIDE 0.9% 1000ML 1,000 ML IV ONE (11:59)
--- NOTE | 2022-08-14 12:04 | History & Physical Report ---
Date of Service August 14, 2022 Assessment & Plan (1) Acute respiratory failure with hypoxia: Plan: Asthma exacerbation +RSV infection Patient reports history of asthma, only occasionally uses albuterol inhaler as needed Current smoker Currently presents with shortness of breath and hypoxia, now requiring 3 L of oxygen In the ED chest x-ray unremarkable, however respiratory panel positive for RSV Patient received DuoNeb's, Solu-Medrol, IV magnesium Continue DuoNeb and Solu-Medrol Will obtain procalcitonin level Continue to closely monitor, try to wean off oxygen Hypomagnesemia -Magnesium admission 1.5 -Replete and monitor CKD stage 3b -Current creatinine 1.4 -Continue to monitor renal function HTN, HLD -Continue home medications -Monitor BP History of left breast cancer, history of ovarian cancer -Underwent left mastectomy, salpingo-oophorectomy hysterectomy -Received 3 cycles of chemotherapy after surgery, however then refused further treatment -She does follow with Dr. Carpenter with oncology/being observed last visit in January 2022 DVT ppx: heparin subq History of Present Illness Chief Complaint: shortness of breath, hypoxia Primary Care Provider: Delano Arndt MD 67-year-old female with history of hypertension, CKD 3B, hx of ovarian cancer, history of breast cancer (follows w/Dr. Carpenter -observation, no current treatment), current smoker, who presents with shortness of breath and hypoxia. Patient reports she has been having sore throat and rhinorrhea for past week. [place] like flulike symptoms. She also reports having occasional dry cough. No sore throat resolved. She has been feeling short of breath though, and was using her as needed albuterol inhaler. Reports history of asthma, however hardly ever needs to use her as needed albuterol inhaler. Initially she was evaluated at urgent care clinic and was provided with a DuoNeb treatment, however she continued to be hypoxic and therefore was referred to ED. In the ED she required DuoNebs, also received 125 mg of Solu-Medrol and IV magnesium. Requires 3 L of supplemental oxygen, at home does not use any oxygen. Chest x-ray overall unremarkable. She was found to be positive for RSV. 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 Patient denies any chest pain and troponin is negative. Denies any fevers, chills, abdominal pain, nausea vomiting diarrhea. Allergies Allergy/AdvReac Type Severity Reaction Status Date / Time No Known Allergies Allergy Verified 06/21/19 06:49 Home Medications Medication Instructions Recorded Confirmed Type albuterol sulfate 90 mcg/actuation 1 puff inhalation Q6H PRN SOB 05/17/19 05/17/19 History aerosol inhaler amlodipine 5 mg tablet 5 mg PO QAM 05/17/19 06/21/19 History atorvastatin 40 mg tablet 40 mg PO PM 05/17/19 06/21/19 History carvedilol 6.25 mg tablet 6.25 mg PO BID 05/17/19 06/21/19 History lisinopril 20 1 tab PO QAM 05/17/19 06/21/19 History mg-hydrochlorothiazide 25 mg tablet aspirin 81 mg tablet,delayed 81 mg PO BID #84 tabs 06/22/19 Rx release (Ecotrin Low Strength) oxycodone 5 mg tablet 5 mg PO Q4H PRN pain #20 tabs 06/22/19 Rx Past Med/Surg History Medical History (Updated 08/14/22 @ 12:05 by Humble Quiñonez MD) Asthma STABLE; RARELY USES PRN INH History of breast cancer S/P LEFT MASTECTOMY + RADIATION - 1994 History of ovarian cancer S/P NENITA BSO + CHEMO - 2015 Hyperlipidemia Hypertension Limb alert care status LUE Surgical History History of breast biopsy History of colonoscopy History of left mastectomy History of right hip replacement History of total abdominal hysterectomy and bilateral salpingo-oophorectomy History of vascular access device REMOVED Status post transverse rectus abdominis muscle (TRAM) flap breast reconstruction Social History Smoking Status: Current some day smoker Cigarettes Per Day: 3-4 PER DAY (Advised); Second Hand Exposure: Yes; Hx Alcohol Use: Yes Hx Substance Use: No Preferred Language: Sinhala Communication Ability: Effective Technology Services Manager Required: No Beliefs That Will Affect Care: None marital status: Single Current Living Situation: Alone Feels Safe at Home: Yes Assistive Devices: Glasses and Walker Review of Systems Review of Systems: All systems reviewed & are unremarkable except as noted in HPI & below Physical Exam Constitutional: WD/WN, vitals as above Eyes: PERRL, conjunctivae normal, anicteric sclerae ENMT: external ear and nose normal, oropharynx normal Neck: trachea midline, no thyromegaly Respiratory: + cough; no respiratory distress Auscultation: + rhonchi (diffuse) and + wheezes (mild) Cardiovascular: RRR, no murmur, no edema Chest (Breasts): Chest: normal inspection of chest Gastrointestinal (Abdomen): normal bowel sounds, soft, nontender, no hepatosplenomegaly Musculoskeletal: no cyanosis or clubbing, extremities motor strength 5/5 Skin: no rashes, warm and dry Neurologic: PERRL, EOMI, accommodation nl, no face palsy, no dysarthria Psychiatric: A+Ox3, euthymic affect Genitourinary: no CVA tenderness Lymphatic: no lymphedema Results & Data Results & Data ([facility]) Vital Signs (Past 12 Hours) Vital Signs Temp Pulse Pulse Resp BP BP Pulse Ox 08/14/22 10:18 90 95 08/14/22 10:18 88 22 164/99 H 93 08/14/22 10:18 77 L 08/14/22 09:33 37.1 C 95 H 18 183/103 H 87 L O2 Del Method O2 Flow Rate 08/14/22 10:18 Nasal Cannula 3 08/14/22 10:18 Nasal Cannula 3 08/14/22 10:18 Room Air 08/14/22 09:33 Room Air Laboratory Results 08/14/22 08/14/22 08/14/22 Range/Units 11:24 10:15 10:15 WBC (4.8-10.8) K/ul RBC (3.93-5.22) M/uL Hgb (12.0-16.0) g/dl Hct (34.1-44.9) % MCV (80.0-100.0) fL MCH (25.0-34.0) pg MCHC (32.0-36.0) g/dL RDW Std Deviation (36.4-46.3) fL RDW Coeff of Santana (11.5-14.5) % Plt Count (130-400) K/uL MPV (9.4-12.3) fL Immature Gran % (Auto) % Neut % (Auto) % Lymph % (Auto) % [place] % (Auto) % Eos % (Auto) % Baso % (Auto) % Neut # (Auto) (1.4-6.5) K/uL Lymph # (Auto) (1.2-3.4) K/uL [place] # (Auto) (0.24-0.82) K/uL Eos # (Auto) (0-0.50) K/uL Baso # (Auto) (0-0.2) K/uL Immature Gran # (Auto) (0.00-0.02) K/uL PT (9.0-12.0) Seconds INR (0.9-1.1) APTT (21.0-31.0) Seconds PTT Ratio VBG pH 7.41 (7.36-7.41) VBG pCO2 34 L (38-50) mmHg VBG pO2 51 mmHg VBG HCO3 22 mmol/L VBG O2 Saturation 85.2 % VBG Base Excess -2.4 mEq/L Sodium (136-145) mmol/L Potassium (3.5-5.1) mmol/L Chloride (98-107) mmol/L Carbon Dioxide (21-32) mmol/L Anion Gap (3-11) BUN (6-23) mg/dl Creatinine (0.6-1.2) mg/dl Est Cr Clr Drug Dosing ml/min Est GFR ( Amer) ml/min Est GFR (Non-Af Amer) ml/min BUN/Creatinine Ratio (10-20) Glucose (70-99(Fasting)) mg/dl Calcium (8.5-10.1) mg/dl Magnesium (1.7-2.4) mg/dl Total Bilirubin (0.2-1.0) mg/dl AST (13-39) U/L ALT (7-52) U/L Alkaline Phosphatase (34-104) U/L Troponin I High Sens (0-14) pg/ml Total Protein (6.0-8.3) gm/dl Albumin (3.4-5.0) gm/dl Globulin (2.5-4.0) gm/dl Albumin/Globulin Ratio (0.9-2) Urine Color Yellow Urine Appearance Clear (Clear) Urine pH 7.0 (4.5-7.5) Ur Specific [place] 1.014 (1.000-1.030) Urine Protein 3+ H (Negative) Urine Glucose (UA) Negative (Negative) Urine Ketones Negative (Negative) Urine Blood Trace H (Negative) Urine Nitrite Negative (Negative) Urine Bilirubin Negative (Negative) Urine Urobilinogen Negative (Negative) Ur Leukocyte Esterase Trace H (Negative) Urine WBC (Auto) 5-10 H (0-5) /hpf Urine RBC (Auto) 0-4 (0-4) /hpf U Hyaline Cast (Auto) 1-5 (0-5) /lpf U Epithel Cells (Auto) >30 H (0-5) /lpf Urine Bacteria (Auto) Negative (Negative) SARS-CoV-2 (PCR) NEGATIVE (Negative) Influenza Type A (PCR) Negative (Neg) Influenza Type B (PCR) Negative (Neg) RSV (RT-PCR) Positive A* (Neg) 08/14/22 08/14/22 08/14/22 Range/Units 10:15 10:15 10:15 WBC 6.53 (4.8-10.8) K/ul RBC 4.43 (3.93-5.22) M/uL Hgb 13.0 (12.0-16.0) g/dl Hct 39.7 (34.1-44.9) % MCV 89.6 (80.0-100.0) fL MCH 29.3 (25.0-34.0) pg MCHC 32.7 (32.0-36.0) g/dL RDW Std Deviation 43.1 (36.4-46.3) fL RDW Coeff of Santana 13.2 (11.5-14.5) % Plt Count 204 (130-400) K/uL MPV 9.5 (9.4-12.3) fL Immature Gran % (Auto) 0.5 % Neut % (Auto) 76.1 % Lymph % (Auto) 10.4 % [place] % (Auto) 11.3 % Eos % (Auto) 0.9 % Baso % (Auto) 0.8 % Neut # (Auto) 4.97 (1.4-6.5) K/uL Lymph # (Auto) 0.68 L (1.2-3.4) K/uL [place] # (Auto) 0.74 (0.24-0.82) K/uL Eos # (Auto) 0.06 (0-0.50) K/uL Baso # (Auto) 0.05 (0-0.2) K/uL Immature Gran # (Auto) 0.03 H (0.00-0.02) K/uL PT 11.1 (9.0-12.0) Seconds INR 1.0 (0.9-1.1) APTT 26.3 (21.0-31.0) Seconds PTT Ratio 1.0 VBG pH (7.36-7.41) VBG pCO2 (38-50) mmHg VBG pO2 mmHg VBG HCO3 mmol/L VBG O2 Saturation % VBG Base Excess mEq/L Sodium 138 (136-145) mmol/L Potassium 5.0 (3.5-5.1) mmol/L Chloride 105 (98-107) mmol/L Carbon Dioxide 25 (21-32) mmol/L Anion Gap 8 (3-11) BUN 17 (6-23) mg/dl Creatinine 1.36 H (0.6-1.2) mg/dl Est Cr Clr Drug Dosing 46.7 ml/min Est GFR ( Amer) 47.2 ml/min Est GFR (Non-Af Amer) 40.7 ml/min BUN/Creatinine Ratio 12.5 (10-20) Glucose 102 H (70-99(Fasting)) mg/dl Calcium 10.0 (8.5-10.1) mg/dl Magnesium 1.5 L (1.7-2.4) mg/dl Total Bilirubin 0.8 (0.2-1.0) mg/dl AST 31 (13-39) U/L ALT 28 (7-52) U/L Alkaline Phosphatase 105 H (34-104) U/L Troponin I High Sens 6.6 (0-14) pg/ml Total Protein 7.6 (6.0-8.3) gm/dl Albumin 4.4 (3.4-5.0) gm/dl Globulin 3.2 (2.5-4.0) gm/dl Albumin/Globulin Ratio 1.4 (0.9-2) Urine Color Urine Appearance (Clear) Urine pH (4.5-7.5) Ur Specific [place] (1.000-1.030) Urine Protein (Negative) Urine Glucose (UA) (Negative) Urine Ketones (Negative) Urine Blood (Negative) Urine Nitrite (Negative) Urine Bilirubin (Negative) Urine Urobilinogen (Negative) Ur Leukocyte Esterase (Negative) Urine WBC (Auto) (0-5) /hpf Urine RBC (Auto) (0-4) /hpf U Hyaline Cast (Auto) (0-5) /lpf U Epithel Cells (Auto) (0-5) /lpf Urine Bacteria (Auto) (Negative) SARS-CoV-2 (PCR) (Negative) Influenza Type A (PCR) (Neg) Influenza Type B (PCR) (Neg) RSV (RT-PCR) (Neg) Diagnostic Findings CXR FINDINGS: Cardiac silhouette is enlarged. Atherosclerosis of the aorta. No pneumothorax, large pleural effusion or overt pulmonary edema. Mild subsegmental left basilar densities suggest atelectasis. Prominent epicardial fat pad. Degenerative changes of the shoulders and spine. Surgical clip of the left axilla. IMPRESSION: No acute process.
--- NOTE | 2022-08-14 12:40 | Electrocardiogram Report ---
Test Reason : Blood Pressure : / mmHG Vent. Rate : 087 BPM Atrial Rate : 087 BPM P-R Int : 142 ms QRS Dur : 072 ms QT Int : 322 ms P-R-T Axes : 027 082 035 degrees QTc Int : 387 ms Poor data quality, interpretation may be adversely affected Normal sinus rhythm Normal ECG When compared with ECG of 22-MAY-2019 11:04, No significant change was found Confirmed by Santy Ghosh ([id number]) on 08/14/2022 12:40:18 PM Referred By: REFERRED SELF Confirmed By:Carlos Ghosh
[2022-08-14] MEDS: ALBUT/IPRATROP 3MG/0.5MG NEB 3 ML VIAL NEB SCH ×3 (15:11→22:54)
[2022-08-14] MEDS ORDERED: methylPREDNISolone 40 MG in SYRINGE 0 ML IV SCH (17:00)
[2022-08-14] MEDS ORDERED: INFLUENZA VACCINE HIGH DOSE PF 65+ 0.7 ML SYR IM ONE (18:00)
[2022-08-14 20:17] LABS: BUN Creatinine Ratio 13.6 (10-20); Calcium 9.6 mg/dl (8.5-10.1); Creatinine Clr Calc Pharmacy 48.4 ml/min; Est GFR (African American) 48.9 ml/min; Est GFR (Non-African American) 42.2 ml/min; Magnesium 1.9 mg/dl (1.7-2.4); Potassium 4.3 mmol/L (3.5-5.1)
[2022-08-14] MEDS ORDERED: ATORVASTATIN 40 MG TAB PO SCH (21:00)
[2022-08-14] MEDS: carvediloL 6.25 MG TAB PO SCH (21:52)
[2022-08-14] MEDS: HEPARIN SOD 5,000 UNIT/0.5 ML VIAL SQ SCH (21:54)
[2022-08-14] MEDS: ASPIRIN 81 MG ECTAB PO SCH (21:57)
[2022-08-14] MEDS: methylPREDNISolone 40 MG in SYRINGE 0 ML IV SCH (23:09)
[2022-08-15] MEDS: methylPREDNISolone 40 MG in SYRINGE 0 ML IV SCH ×2 (03:08→09:29)
[2022-08-15] MEDS: ALBUT/IPRATROP 3MG/0.5MG NEB 3 ML VIAL NEB SCH ×3 (03:25→11:27)
[2022-08-15 07:35] LABS: Hematocrit (blood only) 37.2 % (34.1-44.9); Hemoglobin 12.6 g/dl (12.0-16.0); Mean Corpuscular Hemoglobin 29.9 pg (25.0-34.0); Mean Corpuscular Hgb Conc 33.9 g/dL (32.0-36.0); Mean Corpuscular Volume 88.2 fL (80.0-100.0); Mean Platelet Volume 9.3 fL (9.4-12.3); Platelet Count 214 K/uL (130-400); RDW Coefficient of Variation 13.2 % (11.5-14.5); RDW Standard Deviation 42.5 fL (36.4-46.3); Red Blood Count 4.22 M/uL (3.93-5.22); White Blood Count 8.04 K/ul (4.8-10.8)
[2022-08-15 07:55] LABS: BUN Creatinine Ratio 18.3 (10-20); Calcium 9.1 mg/dl (8.5-10.1); Creatinine Clr Calc Pharmacy 41.4 ml/min; Est GFR (African American) 40.9 ml/min; Est GFR (Non-African American) 35.3 ml/min; Magnesium 1.8 mg/dl (1.7-2.4); Phosphorus 5.2 mg/dl (2.5-4.9); Potassium 4.6 mmol/L (3.5-5.1)
[2022-08-15] MEDS ORDERED: LACTATED RINGER'S 1,000 ML IV ONE (08:10)
[2022-08-15] MEDS: HEPARIN SOD 5,000 UNIT/0.5 ML VIAL SQ SCH (08:28)
[2022-08-15] MEDS: ASPIRIN 81 MG ECTAB PO SCH (08:28)
[2022-08-15] MEDS: carvediloL 6.25 MG TAB PO SCH (08:29)
[2022-08-15] MEDS ORDERED: LISINOPRIL/HCTZ 20/25MG 1 TAB PO SCH (09:00)
[2022-08-15] MEDS ORDERED: amLODIPine BESYLATE 5 MG TAB PO SCH (09:00)
[2022-08-15] MEDS ORDERED: predniSONE 20 MG TAB PO SCH (12:15)
--- NOTE | 2022-08-15 13:17 | Discharge Summary ---
Date of Service August 15, 2022 Admission HPI Per Admitting Provider 67-year-old female with history of hypertension, CKD 3B, hx of ovarian cancer, history of breast cancer (follows w/Dr. Jayden evans, no current treatment), current smoker, who presents with shortness of breath and hypoxia. Patient reports she has been having sore throat and rhinorrhea for past week. [place] like flulike symptoms. She also reports having occasional dry cough. No sore throat resolved. She has been feeling short of breath though, and was using her as needed albuterol inhaler. Reports history of asthma, however hardly ever needs to use her as needed albuterol inhaler. Initially she was evaluated at urgent care clinic and was provided with a DuoNeb treatment, however she continued to be hypoxic and therefore was referred to ED. In the ED she required DuoNebs, also received 125 mg of Solu-Medrol and IV magnesium. Requires 3 L of supplemental oxygen, at home does not use any oxygen. Chest x-ray overall unremarkable. She was found to be positive for RSV. 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 Patient denies any chest pain and troponin is negative. Denies any fevers, chills, abdominal pain, nausea vomiting diarrhea. Admission Exam Per Admitting Provider Constitutional: WD/WN, vitals as above Eyes: PERRL, conjunctivae normal, anicteric sclerae ENMT: external ear and nose normal, oropharynx normal Neck: trachea midline, no thyromegaly Respiratory: + cough; no respiratory distress Auscul tation: + rhonchi (diffuse) and + wheezes (mild) Cardiovascular: RRR, no murmur, no edema Chest (Breasts): Chest: normal inspection of chest Gastrointestinal (Abdomen): normal bowel sounds, soft, nontender, no hepatosplenomegaly Musculoskeletal: no cyanosis or clubbing, extremities motor strength 5/5 Skin: no rashes, warm and dry Neurologic: PERRL, EOMI, accommodation nl, no face palsy, no dysarthria Psychiatric: A+Ox3, euthymic affect Genitourinary: no CVA tenderness Lymphatic: no lymphedema Principal Diagnosis acute asthma exacerbation due to RSV Discharge Exam Constitutional: well appearing, lying in bed, NAD Eyes: PERRL, conjunctivae normal, anicteric sclerae ENMT: external ear and nose normal, oropharynx normal Neck: trachea midline, no thyromegaly Respiratory: - cough; no respiratory distress Auscultation: - rhonchi and - wheezes Cardiovascular: RRR, no murmur, no edema Chest (Breasts): Chest: normal inspection of chest Gastrointestinal (Abdomen): normal bowel sounds, soft, nontender, no hepatosplenomegaly Musculoskeletal: no cyanosis or clubbing, extremities motor strength 5/5 Skin: no rashes, warm and dry Neurologic: PERRL, EOMI, accommodation nl, no face palsy, no dysarthria Psychiatric: A+Ox3, euthymic affect Genitourinary: no CVA tenderness Lymphatic: no lymphedema Discharge Data Allergies Allergy/AdvReac Type Severity Reaction Status Date / Time No Known Allergies Allergy Verified 08/14/22 16:02 Consultations 08/14/22 11:54 ED Decision to Admit Stat Hospital Course (1) Acute respiratory failure with hypoxia: Asthma exacerbation +RSV infection Patient reports history of asthma, only occasionally uses albuterol inhaler as needed Current smoker Currently presents with shortness of breath and hypoxia, now requiring 3 L of oxygen In the ED chest x-ray unremarkable, however respiratory panel positive for RSV Patient received DuoNeb's, Solu-Medrol, IV magnesium Continue on prednisone and albuterol as needed Procalcitonin negative - Weaned off oxygen, ambulating well without oxgyen or hypoxia - feeling well - discharged home to complete 5 day course of prednisone and close PCP followu p Hypomagnesemia -Magnesium admission 1.5 -Replete and monitor CKD stage 3b -Current creatinine 1.4 - given IVF prior to discharge HTN, HLD -Continue home medications -Monitor BP History of left breast cancer, history of ovarian cancer -Underwent left mastectomy, salpingo-oophorectomy hysterectomy -Received 3 cycles of chemotherapy after surgery, however then refused further treatment -She does follow with Dr. Carpentre with oncology/being observed last visit in January 2022 DVT ppx: heparin subq Total Time Total Time Spent Total Time Spent (In Minutes): 25 Total Time Includes: Examination of the Patient, Discharge Planning and Medication Reconciliation Discharge Plan Discharge Items Patient Disposition: Home - Self-Care Reason For Visit: HYPOXIA, +RSV Discharge Diagnosis: asthma exacerbation due to RSV Activity: Resume your previous activity Non-emergency contact: Primary Care Provider Call non-emergency contact if: you have any medication questions and your symptoms worsen Follow-up/Referrals: Delano Arndt MD [Primary Care Provider] - Diet: Heart Healthy Addtl Attending Provider Instructions: You were admitted due to an asthma exacerbation due to RSV virus. You were given breathing treatments and steroids with improvement. You felt well and were off oxygen and ambulating well. You are being discharged with 3 more days of steroids with Prednisone 40mg daily and your albuterol inhaler as needed. Please follow up with Primary Care doctor later this week. Pending Studies at Discharge: No Stand-Alone Forms: My [facility] 911, Work/School Release, Smoking Cessation Medications and DC Order Prescriptions: New prednisone 20 mg Tablet 40 mg PO DAILY Qty: 6 0RF Continued atorvastatin 40 mg Tablet 40 mg PO PM carvedilol 6.25 mg Tablet 6.25 mg PO BID lisinopril-hydrochlorothiazide 20-25 mg Tablet 1 tab PO QAM albuterol sulfate 90 mcg/actuation Hfa Aerosol Inhaler 1 puff INHALATION Q6H PRN (Reason: SOB) aspirin [Ecotrin Low Strength] 81 mg Tablet,Delayed Release (Dr/Ec) 81 mg PO BID Qty: 84 0RF acetaminophen [Tylenol Extra Strength] 500 mg Tablet 1,000 mg PO Q6H PRN (Reason: Pain) amlodipine 10 mg tablet 10 mg PO QAM Discharge Orders: Discharge Order (Routine); Ordered 08/15/22 Ordered By: Sathya Beckham Admission Data Admit Date/Time: 08/14/22 12:25 Attending Provider: Sathya Beckham Admit Provider: Humble Quiñonez Primary Care Provider: Delano Arndt Other Providers: Humble Quiñonez
== END 2022-08-15 14:17 | disposition home or self-care (01) ==
LOC: ED 09:28 → 2W 12:25 → INTOOBSV 12:25 → SUATTDRO 12:25 → 2W 18:05
DX: Z79.82 Long term (current) use of aspirin; B97.4 Respiratory syncytial virus as the cause of diseases classified elsewhere; Z79.51 Long term (current) use of inhaled steroids; E78.5 Hyperlipidemia, unspecified; J20.9 Acute bronchitis, unspecified; Z85.3 Personal history of malignant neoplasm of breast; N18.32 Chronic kidney disease, stage 3b; J44.1 Chronic obstructive pulmonary disease with (acute) exacerbation; I12.9 Hypertensive chronic kidney disease with stage 1 through stage 4 chronic kidney disease, or unspecified chronic kidney disease; F17.210 Nicotine dependence, cigarettes, uncomplicated; Z85.43 Personal history of malignant neoplasm of ovary; R09.02 Hypoxemia